=== PATIENT | male | born 1970 | race American Indian/Alaskan Native ===

== ENCOUNTER 2020-07-20 07:19 | Day surgery (SDC) | payer BC ==
[2020-07-20] MEDS ORDERED: propofoL 200 MG/20 ML VIAL IV ONE (07:25)
[2020-07-20] MEDS ORDERED: HYDROmorphone 1 MG/1 ML INJ ONE (07:25)
[2020-07-20] MEDS ORDERED: LIDOCAINE MPF (2%) 20 MG/1 ML VIAL 5 ML ONE (07:26)
[2020-07-20] MEDS ORDERED: BACTERIOSTATIC SODIUM CHLORIDE 0.9% 30 ML VIAL INFILTRATI ONE (07:47)
[2020-07-20] MEDS ORDERED: LACTATED RINGERS 1,000 ML ONE (07:47)
[2020-07-20] MEDS ORDERED: HYDROmorphone 1 MG/1 ML INJ IV PRN ×2 (07:57)
[2020-07-20] MEDS ORDERED: ONDANSETRON 4 MG/2 ML INJ IV PRN (07:57)
--- NOTE | 2020-07-20 07:58 | Anesthesia Day of Surgery ---
Anesthesia Day of Surgery - Day of Surgery Patient Examined: Yes Patient H&P Reviewed: Yes Patient is NPO: Yes
[2020-07-20] MEDS ORDERED: MIDAZOLAM 2 MG/2 ML INJ IV NR (08:00)
[2020-07-20] MEDS ORDERED: LACTATED RINGERS 1,000 ML IV SCH (08:00)
--- NOTE | 2020-07-20 08:00 | Anesthesia Consultation ---
Anesthesia Consult and Med Hx Date of service: 07/20/20 - Airway Anesthetic Teeth Evaluation: Crowns ROM Head & Neck: Adequate Mental/Hyoid Distance: Adequate Mallampati Class: Class II Intubation Access Assessment: Good - Pre-Operative Health Status ASA Pre-Surgery Classification: ASA2 Proposed Anesthetic Plan: General - Pulmonary Hx Smoking: No (+2FS) Hx Asthma: Yes (SEASONAL/ PRN INHALER) Hx Sleep Apnea: No (Denies) - Cardiovascular System Hx Hypertension: Yes (X 10 YRS) - Central Nervous System Hx Back Pain: Yes Hx Psychiatric Problems: No - Endocrine Hx Renal Disease: Yes (Hydronephrosis) Hx Liver Disease: No Hx Insulin Dependent Diabetes: No Hx Non-Insulin Dependent Diabetes: No Hx Thyroid Disease: No - Hematic Hx Anemia: No Hx Sickle Cell Disease: No - Other Systems Hx Alcohol Use: Yes Hx Substance Use: No Hx Cancer: Yes Hx Obesity: Yes
[2020-07-20] MEDS ORDERED: PHENYLEPHRINE/NS 1,000 MCG/10 ML SYRINGE (OR USE) IV ONE (09:27)
[2020-07-20] MEDS ORDERED: WATER FOR IRRIG STERILE 2000 ML IR ONE (09:30)
[2020-07-20] MEDS ORDERED: ONDANSETRON 4 MG/2 ML INJ ONE (09:46)
[2020-07-20] MEDS ORDERED: KETOROLAC 30 MG/1 ML INJ ONE (09:46)
--- NOTE | 2020-07-20 10:07 | Short Stay Summary ---
Short Stay Documentation Date of service: 07/20/20 - History H&P: obtained from office - Allergies and Medications Current Medications: Allergies Sulfa (Sulfonamide Antibiotics) Allergy (Verified 07/16/20 12:51) Rash Home Medications Medication Instructions Recorded Confirmed Last Taken Type Amlodipine Bes/Olmesartan Med 1 tab PO DAILY 01/20/16 07/16/20 03/07/16 07:45 History [Bill 5-20 mg] Multivitamin Tab [Multiple Vitamin 1 each PO QDAY 01/20/16 07/16/20 03/06/16 History TAB (Theragran)] Albuterol Sulfate [Proventil Hfa] 2 puff IH PRN PRN 07/16/20 07/16/20 Unknown History Ascorbic Acid [Vitamin C] 1,000 mg PO DAILY 07/16/20 07/16/20 Unknown History Cetirizine HCl [Zyrtec 10mg tab] 10 mg PO DAILY 07/16/20 07/16/20 Unknown History Montelukast [Singulair] 10 mg PO QPM 07/16/20 07/16/20 Unknown History Ubidecarenone [Coq-10] 100 mg PO DAILY 07/16/20 07/16/20 Unknown History Active Medications Hydromorphone HCl (Dilaudid) 0.25 mg IV Q10MIN PRN PRN Reason: Pain, Moderate (4-6) Stop: 07/20/20 23:00 Hydromorphone HCl (Dilaudid) 0.5 mg IV Q10MIN PRN PRN Reason: Pain , Severe (7-10) Stop: 07/20/20 23:00 Lactated Ringer's (Lactated Ringers) 1,000 mls @ 125 mls/hr IV DIRECT YEVGENIY Midazolam HCl (Versed) 2 mg IV PREOP NR Stop: 07/20/20 23:59 Ondansetron HCl (Zofran) 4 mg IV ONCE PRN PRN Reason: Nausea And Vomiting Stop: 07/20/20 12:00 - Brief post op/procedure progress note Date of procedure: 07/20/20 Pre-op diagnosis: left hydronephrosis Post-op diagnosis: other (stricture) Procedure: cysto, rpg, balloon dilation, left ureteroscopy, stent ---internal string Anesthesia: GETA Surgeon: NEIL TAY Estimated blood loss: minimal Pathology: none (maida) Specimen disposition: to lab Condition: stable - Hospital course Hospital course: leonie granda, post op info on chart - Disposition Condition at discharge: Stable Disposition: DC-01 TO HOME OR SELFCARE Short Stay Discharge Plan Follow up with: DR MOISÉS [Other] - 7 Days
--- NOTE | 2020-07-20 10:25 | Operative Report ---
PREOPERATIVE DIAGNOSIS: Left hydronephrosis. POSTOPERATIVE DIAGNOSES: 1. Left hydronephrosis. 2. Multiple ureteral strictures (distal, L5, L3). PROCEDURE: Cystoscopy, bilateral retrograde pyelograms, balloon dilatation of ureteral strictures, barbotage of left renal pelvis, left double-J stent (6-Algerian 24 cm). SURGEON: Jet Pope M.D. ANESTHESIA: General. ESTIMATED BLOOD LOSS: Minimal. FLUIDS: Crystalloid. COMPLICATIONS: No complications. INDICATIONS: This patient is a 50-year-old gentleman known to my service with a history of prostate cancer and erectile dysfunction. He has actually seen at another institution for flank pain. CT of abdomen and pelvis revealed left hydronephrosis. He presents now for intervention. He does have a history of stones himself as well as a sister. Risks, benefits, and complications were explained. The patient agreed to proceed with surgical intervention. DESCRIPTION OF PROCEDURE: The patient was taken to the operative suite, placed in a supine position. After adequate general anesthesia, he was prepped and draped in a sterile fashion. The patient has a functional penile prosthesis, inflated and deflated without difficulty. A cystoscopy was performed. No urethral abnormalities. Prostate was absent. Bladder, no tumors or stones were noted. Both ureteral orifices in normal position, does have some fullness proximal to the left ureter. Bilateral retrograde pyelograms were obtained with an 8-Algerian [place] catheter and 8 mL of contrast. No filling defects or obstruction on the right. Left side had some diffuse fullness. Two 0.035 Glidewires were placed. Rigid ureteroscopy was performed. I was not able to get the rigid scope, passed the first stricture in the distal ureter and therefore, a 4 cm 18-Algerian balloon was used to dilate the stricture without difficulty. At this point, I used a flexible scope to advance and ran into a second as well as a third stricture that they were all dilated using the balloon, was able to get up to the renal pelvis and to complete the pyelogram. No obvious stones could be appreciated. Barbotage was taken due to the strictures to make sure there is no underlying malignancy. A 6-Algerian 26 cm double-J stent with an internal string was left indwelling. Rectal exam was benign. He was extubated and taken to recovery room. He will go home on [employer] and [employer]. JOB# [id number] CARMELINA/LUCERO
--- NOTE | 2020-07-20 10:54 | Post Anesthesia Evaluation ---
- Post Anesthesia Evaluation Patient Participated: Yes Airway Patent: Yes Stable Respiratory Function: Yes Nausea/Vomiting: No Temp > 96.8F: Yes Pain Manageable: Yes Adequeate Hydration: Yes Anesthesia Complications: No Block Receding Appropriately: Not Applicable Patient on Ventilator: No
[2020-07-20 12:42] VITALS: BP 111/65
--- NOTE | 2020-07-20 16:38 | Fluoroscopy Report ---
FL retrograde urography INDICATION / CLINICAL INFORMATION: LT URETERAL STRICTURE. COMPARISON: None available. FINDINGS: Spot intraoperative images were used for surgical guidance during bilateral retrograde urogram, ballo on dilatation of the left ureter and left JJ ureteral stent placement. Fluoroscopy time: 1 minute 30 seconds. Fluoroscopic images: 16. Signer Name: Anish Pearce MD Signed: 07/20/2020 4:33 PM Workstation Name: [id number]
--- NOTE | 2020-07-20 16:39 | Fluoroscopy Report ---
FL ureter/nephrostomy dilat LT INDICATION / CLINICAL INFORMATION: LT URETERAL STONE. COMPARISON: Additional fluoroscopic images dated 07/20/2020. FINDINGS: Spot intraoperative images were used for surgical guidance during left-sided balloon dilatation of th e ureter. Fluoroscopy time: 1 minute 30 seconds. Fluoroscopic images: 2. Signer Name: Anish Pearce MD Signed: 07/20/2020 4:35 PM Workstation Name: [id number]
== END 2020-07-20 07:20 | disposition home or self-care (01) ==
LOC: OR 07:19
PROVIDERS: ATTEND Urology
DX: N13.1 Hydronephrosis with ureteral stricture, not elsewhere classified (principal); I10 Essential (primary) hypertension; E78.00 Pure hypercholesterolemia, unspecified; J45.909 Unspecified asthma, uncomplicated; E66.9 Obesity, unspecified; Z79.899 Other long term (current) drug therapy; Z88.2 Allergy status to sulfonamides; Z98.890 Other specified postprocedural states; Z90.49 Acquired absence of other specified parts of digestive tract; Z85.46 Personal history of malignant neoplasm of prostate; Z72.89 Other problems related to lifestyle; Z68.41 Body mass index [BMI] 40.0-44.9, adult
CPT/HCPCS: 52332; 52344; 74420; 74485; 88112; 88305; A4217; C1726; C1758; C1769; C2617; J1170; J1885; J2250; J2370; J2405; J2704; J7120; Q9967